=== PATIENT | male | born 2000 | race Caucasian/White ===

== ENCOUNTER 2024-10-20 17:00 | Emergency (ER) | payer SELFPAY ==
--- NOTE | ~2024-10-20 | CT_ITS ---
CT brain wo con Ordering provider: Isidro Marmolejo MD History: 24 years Male with . AMS . Comparison: None. Technique: CT of the head without contrast. Radiation reduction technique utilized. The dose-length p roduct was 681 mGy-cm. FINDINGS: BRAIN PARENCHYMA AND CSF SPACES: No midline shift, mass effect or hemorrhage. The brain parenchyma a nd CSF spaces are otherwise normal. VISUALIZED PARANASAL SINUSES: Well aerated. MASTOIDS: Well aerated. BONES: The bones appear intact. SOFT TISSUES: Visualized nasopharynx is normal. Superficial soft tissues are normal. IMPRESSION: No acute intracranial findings. Reviewed, dictated and finalized at location A.
--- NOTE | ~2024-10-20 | XR_ITS ---
XR chest 1V portable Ordering provider: Isidro Marmolejo MD History: 24 years Male with . AMS . Comparison: None. FINDINGS: MEDIASTINUM: The cardiac silhouette is not enlarged. LUNGS: No infiltrates, effusions or pneumothorax. OTHER: No free air under the diaphragm. IMPRESSION: No acute cardiopulmonary pathology. Reviewed, dictated and finalized at location A.
[2024-10-20 17:02] VITALS: BP 129/82; PULSE 54; RESP 15; TEMP 36.9; O2SAT 99
--- NOTE | 2024-10-20 17:20 | ECG_ITS ---
Test Date: 2024-10-20 17:31:57 Measurements Intervals [place] Rate: 58 P: 52 [place]: 146 QRS: 44 QRSD: 120 T: 42 QT: 384 QTc: 379 Interpretive Statements SINUS BRADYCARDIA WITH SINUS ARRHYTHMIA POSSIBLE RIGHT VENTRICULAR CONDUCTION DELAY [RSR (QR) IN V1/V2] No previous ECG available for comparison Electronically Signed On 10-21-2024 07:10:19 CDT by Dar Santizo M.D.
[2024-10-20] MEDS: SODIUM CHLORIDE 0.9% IV 3,000 ML 999 ML IV CONT (17:25)
--- NOTE | 2024-10-20 17:25 | ED_ITS ---
HPI - General Adult General Chief complaint: Altered Mental Status Stated complaint: overheated, AMS Time Seen by Provider: 10/20/24 17:06 History of Present Illness HPI narrative: This is a 24-year-old male presenting for altered mental status. 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 It is approximately 90? outside today. EMS was called because his coworkers noticed that he was becoming overheated and altered. When EMS arrived he was sitting under a tree and lethargic. He was given fluids and moved sacral area where his condition started to improve. At this time patient is A&O times 2-3. Use marijuana before shift today. Denies other use of alcohol or stimulants. He occasionally uses cocaine. Related Data Allergies Allergy/AdvReac Type Severity Reaction Status Date / Time No Known Drug Allergies AdvReac Unknown Unknown Verified 10/20/24 17:22 Exam 2 Narrative: APPEARANCE: A&O x2, somnolent Head: atraumatic. EYES: EOMI, NOSE: Atraumatic NECK: Trachea midline RESPIRATORY: No increased rate of breathing clear to auscultation CARDIOVASCULAR: RRR, no peripheral edema ABDOMINAL: Non-distended soft nontender MUSCULOSKELETAl: No obvious deformities NEURO: Somnolent. Moving 4/4 extremities to command SKIN:: Dry lips PSYCHIATRIC: Normal affect Course Vital Signs Vital signs: Vital Signs Temperature 98.4 F 10/20/24 17:02 Pulse Rate 54 L 10/20/24 17:02 Respiratory Rate 15 10/20/24 17:02 Blood Pressure 129/82 10/20/24 17:02 Pulse Oximetry 99 10/20/24 17:02 Temperature 98.4 F 10/20/24 17:02 Pulse Rate 54 L 10/20/24 17:02 Respiratory Rate 15 10/20/24 17:02 Blood Pressure 129/82 10/20/24 17:02 Pulse Oximetry 99 10/20/24 17:02 Medical Decision Making [facility] Narrative Medical decision making narrative: -Course: This is a 24-year-old male presenting for heat exhaustion after working out in the 90 degree heat. By time patient got to the ED his mental status is already improving. Patient has stable vital signs and is afebrile pretty Patient given 3 L of fluid with significant improvement. Laboratory studies were unremarkable. On re-evaluation patient is feeling better is back to his baseline mental status. Patient will be discharged with return precautions. -DDX includes but is not limited to: Exhaustion, heat stroke, etoh intoxication, substance abuse Vital Signs Vital Signs: Vital Signs Temperature 98.4 F 10/20/24 17:02 Pulse Rate 54 L 10/20/24 17:02 Respiratory Rate 15 10/20/24 17:02 Blood Pressure 129/82 10/20/24 17:02 Pulse Oximetry 99 10/20/24 17:02 Temperature 98.4 F 10/20/24 17:02 Pulse Rate 54 L 10/20/24 17:02 Respiratory Rate 15 10/20/24 17:02 Blood Pressure 129/82 10/20/24 17:02 Pulse Oximetry 99 10/20/24 17:02 Lab Data 10/20/24 17:36 10/20/24 17:36 Labs: Lab Results 10/20/24 Range/Units 17:36 WBC 6.1 (4.5-10.0) K/mm3 RBC 4.18 L (4.6-6.20) M/mm3 Hgb 12.7 L (14.0-18.0) g/dL Hct 37.7 L (42.0-52.0) % MCV 90.2 (80-100) fl MCH 30.4 (26-34) pg MCHC 33.7 (32-36) g/dl RDW 12.4 (11.5-14.5) % Plt Count 226 (150-375) k/mm3 MPV 11.2 H (7.4-10.4) fl Immature Gran % (Auto) 0.2 (0-0.5) % Neut % (Auto) 59.1 (45.5-73.1) % Lymph % (Auto) 30.8 (18.3-44.2) % Hardy % (Auto) 7.7 (2.6-8.5) % Eos % (Auto) 1.5 (0-4.4) % Baso % (Auto) 0.7 (0.2-1.2) % Lymph # (Auto) 1.87 (0.9-3.2) K/mm3 Hardy # (Auto) 0.5 (0.1-0.6) K/mm3 Eos # (Auto) 0.1 (0-0.3) K/mm3 Baso # (Auto) 0.0 (0.0-0.1) K/mm3 Abs Immat Gran (auto) 0.01 (0.00-0.031) K/mm3 Absolute Neuts (auto) 3.6 (1.3-6.7) K/mm3 Absolute Nucleated RBC 0.000 (0.0-0.012) K/mm3 Nucleated RBC % 0.0 (0.0-0.2) % Sodium 140 (137-145) mmol/L Potassium 3.7 (3.4-5.0) mmol/L Chloride 105 (98-107) mmol/L Carbon Dioxide 24 (22-30) mmol/L Anion Gap 11 (4-12) mmol/L BUN 17 (9-20) mg/dL Creatinine 1.01 (0.7-1.3) mg/dL Estim Creat Clear Calc 111 ml/min Estimated GFR > 60 (59 - ) Glucose 93 (65-110) mg/dL Calcium 9.2 (8.4-10.2) mg/dL Phosphorus 1.9 L (2.5-4.5) mg/dL Magnesium 1.8 (1.6-2.3) mg/dL Total Bilirubin 1.2 (0.2-1.3) mg/dL AST 27 (17-59) U/L ALT 24 (6-50) U/L Alkaline Phosphatase 48 (38-126) U/L Total Creatine Kinase 377 H (55-170) U/L Total Protein 7.4 (6.3-8.2) g/dL Albumin 4.7 (3.5-5.1) g/dL Urine Color Yellow (Yellow) Urine Appearance Clear (Clear) Urine pH 7.0 (5.0-9.0) Ur Specific [place] 1.024 (1.001-1.035) Urine Protein Negative (Negative) mg/dL Urine Glucose (UA) Negative (Negative) mg/dL Urine Ketones Trace H (Negative) mg/dL Ur Blood (Man) Negative (Negative) Urine Nitrate Negative (Negative) Urine Bilirubin Negative (Negative) Urine Urobilinogen 1.0 (<2.0) mg/dL Leukocyte Esterase Rfl Negative (Negative) CHAYITO/UL Urine Opiates Screen Negative (Negative) Urine Methadone Screen Negative (Negative) Ur Barbiturates Screen Negative (Negative) Ur Phencyclidine Scrn Negative (Negative) Ur Amphetamine Screen Negative (Negative) U Benzodiazepines Scrn Negative (Negative) Urine Cocaine Screen Negative (Negative) U Cannabinoids Screen Positive A (Negative) Ethyl Alcohol < 10 (<10) mg/dL Discharge Plan Discharge Clinical Impression: Heat exhaustion Patient Disposition: Home Condition: Stable Instructions: Antibiotic Form, Heat Exhaustion (ED) Additional Instructions: Please make sure you are drinking plenty of fluids in the heat. Please take frequent breaks to cool off. Please return to ED if you develop any new or worsening symptoms. Patient Language: Turkmen Follow-up/Referrals: UNKNOWN,DOCTOR [Primary Care Provider] - Stand Alone Forms: Work/School Release IP
[2024-10-20 17:44] LABS: Hematocrit 37.7 % (42.0-52.0); Hemoglobin 12.7 g/dL (14.0-18.0); Immature Granulocyte Percent A 0.2 % (0-0.5); Lymphocytes Absolute Auto 1.87 K/mm3 (0.9-3.2); Mean Corpuscular HGB Conc 33.7 g/dl (32-36); Mean Corpuscular Hemoglobin 30.4 pg (26-34); Mean Corpuscular Volume 90.2 fl (80-100); Nucleated Red Blood Cells Absolute Auto 0.000 K/mm3 (0.0-0.012); Nucleated Red Blood Cells Perc 0.0 % (0.0-0.2); Platelet Count Result 226 k/mm3 (150-375); Red Blood Count 4.18 M/mm3 (4.6-6.20); White Blood Count 6.1 K/mm3 (4.5-10.0)
--- OUTSIDE RECORDS SUMMARY | 2024-10-20 17:45 | XMS_ITS | Clinical Summary ---
Author Organization [facility] Address [address] [place] [id number] Care Team Providers Care Lens Grinder Apprentice Name Role Phone Davie Beltre MD Primary Care Provider [phone] Allergies No known active allergies Medications methylPREDNISol one, SHAUNA, 4 MG tablet 6 TABLETS ON DAY ONE, 5 TABLETS DAY TWO, 4 TABLETS DAY THREE, 3 TABLETS DAY FOUR, 2 TABLETS DAY FIVE, AND 1 TABLET DAY SIX 1 each 02/08/2021 Active tiZANidine 4 MG tablet Take 1 tablet (4 mg total) by mouth every 6 (six) hours as needed. 12 tablet 02/08/2021 Active HYDROcodone-verona taminophen (NORCO) 5-325 MG tabletIndicatio ns:Acute Pain < 7 Day Supply Take 1 tablet by mouth every 6 (six) hours as needed. Indications: Acute Pain < 7 Day Supply 10 tablet 12/09/2021 Active Family History Medical History Relation Comments Cancer Mother Relation Status Comments Mother Social History Tobacco Use Types Packs/Day Years Used Date Smoking Tobacco: Every Day Cigarettes Smokeless Tobacco: Never Alcohol Use Standard Drinks/Week Comments Yes 0 (1 standard drink = 0.6 oz pur e alcohol) once every few weeks Sex and Gender Information Value Date Recorded Sex Assigned at Not on file Legal Sex Male 11:31 AM CDT Gender Identity Not on file Sexual Orientation Not on file Last Filed Vital Signs Vital Sign Reading Time Taken Comments Blood Pressure 136/69 05/28/2022 11:12 PM BILINGUAL NANNY Pulse 78 05/28/2022 11:12 PM BILINGUAL NANNY Temperature 37.7 C (99.8 F) 05/28/2022 11:12 PM BILINGUAL NANNY Respiratory Rate 20 05/28/2022 11:12 PM BILINGUAL NANNY Oxygen Saturation 100% 05/28/2022 11:12 PM BILINGUAL NANNY Inhaled Oxygen Concentration - - Weight 80.4 kg (177 lb 4 oz) 05/28/2022 11:12 PM BILINGUAL NANNY Height 193 cm (6' 4) 05/28/2022 11:12 PM BILINGUAL NANNY Body Mass Index 21.58 05/28/2022 11:12 PM BILINGUAL NANNY Plan of Treatment Health Maintenance Due Date Last Done Comments Annual Physical 06/12/2003 HPV Vaccines (2 - Male 3-dos e series) 04/06/2018 03/09/2018 Hepatitis C 2018 Meningococcal B Vaccine (2 o f 2 - Bexsero SCDM 2-dose series) 09/06/2018 03/09/2018 DTaP, Tdap and Td Vaccines ( 1 - Tdap) 06/12/2019 Hepatitis B Vaccines (1 of 3 - 19+ 3-dose series) 06/12/2019 Pneumococcal Vaccine: Pediatrics (0 to 5 Years) and At-Risk Patients (6 to 49 Years) (1 of 2 - PCV) 06/12/2019 COVID-19 Vaccine (1 - 2023-2 5 season) 2023 Meningococcal Vaccine Completed 03/09/2018 , 03/21/2014 RSV Immunizations Under 20 Months Aged Out No longer eligible b ased on patient's age to complete this topic Insurance [employer] Care Teams Lens Grinder Apprentice Relationship Specialty Start Date End Date Davie Beltre MD [address] [facility] [address] [place] [id number] PCP - General INTERNAL MEDICINE 05/28/22
--- OUTSIDE RECORDS SUMMARY | 2024-10-20 17:45 | XMS_ITS | Referral Summary ---
Author Organization [facility] Address [address] [place] [address] Care Team Providers Care Joiner Name Role Phone Davie Beltre MD Primary Care Provider [phone] Davie Beltre MD Unavailable [phone] Allergies No known active allergies Medications No known medications Active Problems No known active problems Social History Tobacco Use Types Packs/Day Years Used Date Smoking Tobacco: Never Assessed Sex and Gender Information Value Date Recorded Sex Assigned at Not on file Legal Sex Male 10:54 AM CDT Gender Identity Not on file Sexual Orientation Not on file Last Filed Vital Signs Vital Sign Reading Time Taken Comments Blood Pressure 117/82 01/28/2023 9:40 PM CDT Pulse 54 01/28/2023 9:40 PM CDT Temperature 36.7 C (98.1 F) 01/28/2023 2:55 PM CDT Respiratory Rate 16 01/28/2023 9:40 PM CDT Oxygen Saturation 100% 01/28/2023 9:40 PM CDT Inhaled Oxygen Concentration - - Weight 74 kg (163 lb 2.3 oz) 01/28/2023 2:55 PM CDT Height 190.5 cm (6' 3) 01/28/2023 2:55 PM CDT Body Mass Index 20.39 01/28/2023 2:55 PM CDT Plan of Treatment Not on file Insurance [facility] Care Teams Joiner Relationship Specialty Start Date End Date Davie Beltre MD [address] [facility] [address] [place] [address] PCP - General Internal Medicine 01/28/23 Davie Beltre MD [address] [facility] [address] [place] [address] (work) Internal Medicine 01/28/23
--- OUTSIDE RECORDS SUMMARY | 2024-10-20 17:45 | XMS_ITS | Clinical Summary ---
Author Organization [facility] Address [address] [place] [address] Care Team Providers Care Conveyor Mechanic Name Role Phone Brandi Arredondo MD Primary Care Provider [phone] Source Comments [facility],non-owned Affiliates and Associated Physician Practices is amultiple site organization consisting of ambulatory clinics and hospital sitesin [place], [place], [place] and [place]. This disclosure is being madepursuant to the Care Everywhere program and may not contain all information available regarding this patient. Last updated [email or web address] [email or web address] Social History Tobacco Use Types Packs/Day Years Used Date Smoking Tobacco: Never Assessed Sex and Gender Information Value Date Recorded Sex Assigned at Not on file Legal Sex Male 1:43 PM PATHOLOGICAL TECHNICIAN Gender Identity Not on file Sexual Orientation Not on file Plan of Treatment Health Maintenance Due Date Last Done Comments HIV SCREENING 06/12/2015 HPV VACCINE (1 - Male 3-dose series) 06/12/2015 HEPATITIS C SCREENING 06/07/2018 DTAP/TDAP/TD VACCINES (1 - Tdap) 06/12/2019 HEPATITIS B VACCINE (1 of 3 - 19+ 3-dose series) 06/12/2019 COVID-19 VACCINE (1 - 2023-2 5 season) 2023 DEPRESSION SCREENING 04/13/2024 INFLUENZA VACCINE (#1) 2024 ZOSTER VACCINE (1 of 2) 2050 HIB VACCINE Aged Out No longer eligi ble based on patient's age to complete this topic MENINGOCOCCAL (Group B) VACC INE SHARED DECISION-MAKING Aged Out No longer eligibl e based on patient's age to complete this topic MENINGOCOCCAL GROUPS A/C/Y/W VACCINE Aged Out No longer eligible b ased on patient's age to complete this topic PNEUMOCOCCAL VACCINE Aged Out No long er eligible based on patient's age to complete this topic Insurance [facility] Care Teams Conveyor Mechanic Relationship Specialty Start Date End Date Brandi Arredondo MD [address] [place] [address] PCP - General 08/12/21
--- OUTSIDE RECORDS SUMMARY | 2024-10-20 17:45 | XMS_ITS | Clinical Summary ---
Author Organization [facility] Address [address] [place] [address] Care Team Providers Care Mobile Game Engineer Name Role Phone Davie Beltre MD Primary Care Provider [phone] Davie Beltre MD Unavailable [phone] Allergies No known active allergies Medications No known medications Active Problems No known active problems Social History Tobacco Use Types Packs/Day Years Used Date Smoking Tobacco: Never Assessed Sex and Gender Information Value Date Recorded Sex Assigned at Not on file Legal Sex Male 10:54 AM CDT Gender Identity Not on file Sexual Orientation Not on file Obstetrics History Last Filed Vital Signs Vital Sign Reading [...] 01/28/2023 2:55 PM CDT Plan of Treatment Health Maintenance Due Date Last Done Comments Depression Screening 2000 Hepatitis C Screening 2000 HPV Vaccines (2 - Male 3-dose series) 04/06/2018 03/09/2018 Regular Well Visit/Exam 18-64 2018 Influenza Vaccine (Season Ended) 2024 01/19/2014 DTaP/Tdap/Td Vaccine (5 - Td or Tdap) 12/25/2024 12/25/2014, 07/24/2014, 05/23/2014, Additional history exists Varicella Vaccines Completed 05/23/2014, 03/21/2014 Hepatitis B Screening Completed 07/24/2014 , 05/23/2014, 03/21/2014 Pneumococcal vaccine <65 Aged Out No longer eligible based on patient's age to complete this topic [place] [place] [address] [facility] [place] [address] Care Teams Mobile Game Engineer Relationship Specialty Start Date End Date Davie Beltre MD [address] [facility] [address] [place], [place] [address] PCP - General Internal Medicine 01/28/23 Davie Beltre MD [address] [facility] [address] [place] [address] Internal Medicine 01/28/23
[2024-10-20 17:49] LABS: Add Urine Microscopic? NO; Appearance Urine Clear (Clear); Glucose Urine UA Negative (Negative); Leukocyte Esterase Ur Negative LEU/UL (Negative); Nitrate Urine Negative (Negative); Specific Grav Ur 1.024 (1.001-1.035)
[2024-10-20 17:58] LABS: Alanine Aminotransferase 24 U/L (6-50); Albumin Level 4.7 g/dL (3.5-5.1); Alkaline Phosphatase 48 U/L (38-126); Anion Gap 11 mmol/L (4-12); Aspartate Amino Transferase 27 U/L (17-59); Bilirubin,Total 1.2 mg/dL (0.2-1.3); Blood Urea Nitrogen 17 mg/dL (9-20); Calcium 9.2 mg/dL (8.4-10.2); Carbon Dioxide 24 mmol/L (22-30); Chloride 105 mmol/L (98-107); Estimated CRCL calculation 111 ml/min; Estimated Glomerular Filt Rate > 60; Glucose 93 mg/dL (65-110); Potassium 3.7 mmol/L (3.4-5.0); Sodium 140 mmol/L (137-145); Total Protein 7.4 g/dL (6.3-8.2)
[2024-10-20 18:04] LABS: Creatine Kinase 377 U/L (55-170); Magnesium 1.8 mg/dL (1.6-2.3)
[2024-10-20 18:22] LABS: Cannabinoid Screen Urine Positive (Negative)
[2024-10-20 19:13] VITALS: BP 122/79; PULSE 57; RESP 16; O2SAT 100; O2SAT 99
[2024-10-20] MEDS: POTASSIUM/PHOSPHORUS/SODIUM 1.5 GM PACKET 1 PACKET PO (19:48)
[2024-10-20 19:54] VITALS: BP 137/92; PULSE 64; RESP 16; O2SAT 10
== END 2024-10-20 20:01 | disposition home or self-care (01) ==
PROVIDERS: Emergency Provider Emergency Medicine
DX: T67.5XXA Heat exhaustion, unspecified, initial encounter (principal); X30.XXXA Exposure to excessive natural heat, initial encounter
CPT/HCPCS: 36415; 70450; 71045; 80053; 80307; 81003; 82077; 82550; 83735; 84100; 85025; 93005; 96360; 96361; 99284; A9270; J7030